=== PATIENT | male | born 1945 | race Caucasian/White ===

== ENCOUNTER 2018-02-15 10:00 | Inpatient (IN) | payer OTHER ==
--- NOTE | 2018-02-15 10:13 | EDPHY ---
H & P Stated Complaint: redness/swelling l leg flew from [place] last week/also noted mild sob Time Seen by Provider: 02/15/18 10:08 HPI/ROS: CHIEF COMPLAINT: Left calf pain, cough and dyspnea HISTORY OF PRESENT ILLNESS: The patient presents to the ED with complaints of a one-week history of left calf pain, swelling, slight tachycardia, mild dyspnea and a slight cough. The patient denies prior history of PE or DVT. He denies cardiac or pulmonary problems. The patient denies pleuritic chest pain. The patient does have a past medical history significant for Lyme disease. The patient denies any fever, abdominal pain, vomiting or diarrhea. He has no so seated numbness or weakness. The patient reports his symptoms are mild in nature. REVIEW OF SYSTEMS: A comprehensive 10 point review of systems is otherwise negative aside from elements mentioned in the history of present illness. Source: Patient - Personal History Current Tetanus/Diphtheria Vaccine: Yes - Medical/Surgical History Hx Asthma: No Hx Chronic Respiratory Disease: No Hx Diabetes: No Hx Cardiac Disease: No Hx Renal Disease: No Hx Cirrhosis: No Hx Alcoholism: No Hx HIV/AIDS: No Hx Splenectomy or Spleen Trauma: No Other PMH: lyme disease - Social History Smoking Status: Never smoked - Physical Exam Exam: General Appearance: Alert, no distress Eyes: Pupils equal and round no pallor or injection ENT, Mouth: Mucous membranes moist Respiratory: There are no retractions, lungs are clear to auscultation Cardiovascular: Tachycardic Gastrointestinal: Abdomen is soft and nontender, no masses, bowel sounds normal Neurological: 5/5 strength all 4 extremities Skin: Warm and dry, no rashes Musculoskeletal: Neck is supple nontender Extremities: Asymmetry and swelling noted in the left calf. 2+ dorsalis pedis and posterior tibial pulses noted bilaterally Constitutional: Initial Vital Signs Temperature (C) 37 C 02/15/18 10:04 Heart Rate 135 H 02/15/18 10:04 Respiratory Rate 20 02/15/18 10:04 Blood Pressure 118/90 H 02/15/18 10:04 O2 Sat (%) 92 02/15/18 10:04 O2 Delivery Mode Room Air O2 (L/minute) 98 Allergies/Adverse Reactions: No Known Allergies Allergy (Verified 02/15/18 10:03) Home Medications: Medication Instructions Recorded Enalapril/Hydrochlorothiazide 1 each PO 02/28/13 [Enalapril-Hctz 10-25 mg Tablet] amLODIPine BESYLATE [Norvasc] 10 mg PO DAILY 02/28/13 Medical Decision Making - Diagnostics EKG Interpretation: EKG: Complete interpretation has been separately recorded in the [facility] archive. Summary impression: Atrial fibrillation, rate 103 Imaging Results: Imaging Impressions Extremity Venous Study 02/15/18 10:34 Impression: 1. DVT from the proximal to mid femoral veins through the calf veins. Findings discussed with Charles Montana M.D. at 11:20 hour, 02/15/2018. Chest/Thorax CTA 02/15/18 11:22 Impression: 1. Moderate volume bilateral pulmonary emboli without associated abnormal bowing of the interventricular septum. 2. Incidental cysts within the liver. Findings discussed with Charles Montana at 12:32 hour, 02/15/2018. ED Course/Re-evaluation: The patient presents to the ED for evaluation of left leg pain, tachycardia and mild dyspnea. The patient was noted to be in atrial fibrillation with a rate of approximately 100. The patient's ultrasound confirms a DVT. Given his tachycardia a CT pulmonary angiogram was obtained which demonstrates bilateral thromboembolic disease. The patient is no acute distress. He is also noted to have new onset atrial fibrillation. Consultation is made with the hospitalist service. The patient was started on IV heparin. The patient will be admitted to the hospital by Dr. Buck Gregory. Differential Diagnosis: Differential diagnosis considered includes pulmonary embolism, DVT, atrial fibrillation, dehydration, metabolic abnormality - Data Points Laboratory Results: Laboratory Results 02/15/18 10:50 02/15/18 02/15/18 02/15/18 10:54 10:50 10:50 WBC RBC Hgb POC Hgb 16.0 gm/dL gm/dL (13.7-17.5) Hct POC Hct 47 % % (40-51) MCV MCH MCHC RDW Plt Count MPV Neut % (Auto) Lymph % (Auto) Valencia % (Auto) Eos % (Auto) Baso % (Auto) Nucleat RBC Rel Count Absolute Neuts (auto) Absolute Lymphs (auto) Absolute Monos (auto) Absolute Eos (auto) Absolute Basos (auto) Absolute Nucleated RBC Immature Gran % Immature Gran # D-Dimer > 20.00 ug/mLFEU H ug/mLFEU (0.00-0.50) POC Sodium 137 mEq/L mEq/L (135-145) POC Potassium 3.9 mEq/L mEq/L (3.3-5.0) POC Chloride 99 mEq/L mEq/L (97-110) POC BUN 19 mg/dL mg/dL (7-23) POC Creatinine 0.9 mg/dL mg/dL (0.7-1.3) POC Glucose 148 mg/dL H mg/dL (70-100) Troponin I < 0.012 ng/mL ng/mL (0.000-0.034) 02/15/18 10:50 WBC 5.21 10^3/uL 10^3/uL (3.80-9.50) RBC 4.87 10^6/uL 10^6/uL (4.40-6.38) Hgb 15.8 g/dL g/dL (13.7-17.5) POC Hgb Hct 44.3 % % (40.0-51.0) POC Hct MCV 91.0 fL fL (81.5-99.8) MCH 32.4 pg pg (27.9-34.1) MCHC 35.7 g/dL g/dL (32.4-36.7) RDW 12.8 % % (11.5-15.2) Plt Count 139 10^3/uL L 10^3/uL (150-400) MPV 9.3 fL fL (8.7-11.7) Neut % (Auto) 35.0 % L % (39.3-74.2) Lymph % (Auto) 48.8 % H % (15.0-45.0) Valencia % (Auto) 14.4 % H % (4.5-13.0) Eos % (Auto) 1.0 % % (0.6-7.6) Baso % (Auto) 0.6 % % (0.3-1.7) Nucleat RBC Rel Count 0.0 % % (0.0-0.2) Absolute Neuts (auto) 1.83 10^3/uL 10^3/uL (1.70-6.50) Absolute Lymphs (auto) 2.54 10^3/uL 10^3/uL (1.00-3.00) Absolute Monos (auto) 0.75 10^3/uL 10^3/uL (0.30-0.80) Absolute Eos (auto) 0.05 10^3/uL 10^3/uL (0.03-0.40) Absolute Basos (auto) 0.03 10^3/uL 10^3/uL (0.02-0.10) Absolute Nucleated RBC 0.00 10^3/uL 10^3/uL (0-0.01) Immature Gran % 0.2 % % (0.0-1.1) Immature Gran # 0.01 10^3/uL 10^3/uL (0.00-0.10) D-Dimer POC Sodium POC Potassium POC Chloride POC BUN POC Creatinine POC Glucose Troponin I Medications Given: Discontinued Medications Heparin Sodium (Porcine) (Heparin Injection) 0 unit IVP EDNOW ONE PRN Reason: Protocol Stop: 02/15/18 12:36 Last Admin: 02/15/18 12:51 Dose: 6,800 units Heparin Sodium (Porcine) (Heparin 50 Units/Ml (Premix)) 500 mls @ 0 mls/hr IV EDNOW ONE; Per Protocol PRN Reason: Protocol Stop: 02/15/18 12:36 Last Admin: 02/15/18 12:49 Dose: 500 mls Point of Care Test Results: 02/15/18 10:54 POC Sodium 137 POC Potassium 3.9 POC Chloride 99 POC BUN 19 POC Creatinine 0.9 POC Glucose 148 H Departure - Departure Disposition: [facility] Inpatient Acute Clinical Impression: Atrial fibrillation, Left leg DVT, Bilateral pulmonary embolism Condition: Good Referrals: NONE *PRIMARY CARE P,. [Primary Care Provider] - As per Instructions
--- NOTE | 2018-02-15 10:46 | CPEKG ---
Heart Rate: 103 RR Interval: 583 QRSD Interval: 76 QT Interval: 316 QTC Interval: 414 QRS [place]: -19 T Wave [place]: -18 EKG Severity - ABNORMAL ECG - EKG Impression: ATRIAL FIBRILLATION, V-RATE 79-121 EKG Impression: VENTRICULAR TRIGEMINY EKG Impression: BORDERLINE LEFT AXIS DEVIATION EKG Impression: BORDERLINE T ABNORMALITIES, INFERIOR LEADS Electronically Signed By: Valerie Simms 15-Feb-2018 22:49:43
[2018-02-15 10:59] LABS: PLATELET COUNT 139 10^3/uL (150-400)
[2018-02-15] MEDS ORDERED: IOPAMIDOL (ISOVUE 370) 100 ML BTL IV ONE (11:55)
[2018-02-15] MEDS ORDERED: HEPARIN/DEXTROSE 500 ML IV ONE (12:35)
[2018-02-15] MEDS ORDERED: HEPARIN 10,000 UNIT/10 ML MDV (1,000 UNIT/ML) IVP ONE ×2 (12:35→13:36)
[2018-02-15] MEDS ORDERED: ACETAMINOPHEN 325 MG TAB PO PRN (13:34)
[2018-02-15] MEDS ORDERED: ONDANSETRON 4 MG/2 ML VIAL IVP PRN (13:34)
[2018-02-15] MEDS ORDERED: ONDANSETRON DISINTEGRATING 4 MG TAB PO PRN (13:34)
[2018-02-15] MEDS ORDERED: HEPARIN 10,000 UNIT/10 ML MDV (1,000 UNIT/ML) IVP PRN (13:36)
[2018-02-15] MEDS ORDERED: NS 1,000 ML IV SCH (13:45)
[2018-02-15] MEDS ORDERED: HEPARIN/DEXTROSE 500 ML IV SCH (13:45)
--- NOTE | 2018-02-15 14:37 | GHP ---
[f rep st] HISTORY AND PHYSICAL DATE OF ADMISSION: 02/15/2018 The patient is a pleasant 72-year-old gentleman with history of prostate cancer that has been treated as well as Lyme disease, who presents with swelling in his left calf as well as increased work of br eathing. He traveled here from [facility] 10 days ago, noticed some swelling in his leg subsequently. A lso further history reveals that he has had some shortness of breath and faster heart rate than usual with his workouts going back a couple of months. He has had no hemoptysis. No fever or chills. He has not been hospitalized recently, but he did have a transatlantic flight last week. No prior history of VTE. He does not take estrogen or testosterone containing medicines. REVIEW OF SYSTEMS: Complete 10-point review of systems conducted negative except as noted in the HPI . PAST MEDICAL HISTORY: Hypertension, prostate cancer, Lyme disease, apparently Lyme is endemic in [facility]. FAMILY HISTORY: Reviewed unremarkable. His daughter is healthy at the bedside. ALLERGIES: No known drug allergies. HOME MEDICATIONS: Enalapril/hydrochlorothiazide as well as amlodipine. SOCIAL HISTORY: He has alcohol with regularity but does not have difficulty if he stops drinking. Don lomas does not smoke cigarettes. PHYSICAL EXAMINATION: VITAL SIGNS: Temperature 37, blood pressure 118/90, pulse 135 now 100, breath ing 20 times a minute, 90% on room air. GENERAL: No acute distress. Sunburned. HEENT: Sclerae anicteric. Oropharynx clear. Mucous membranes moist. NECK: Supple without lymphad enopathy or JVD. LUNGS: Clear to auscultation bilaterally. HEART: S1, S2. ABDOMEN: Soft, nonten lauren, nondistended. EXTREMITIES: Lower extremities without edema. Calves are nontender. His left l ower extremity is edematous. There are some dilated veins and some erythema. SKIN: Without rash. NEUROLOGIC: Exam is nonfocal. LABORATORY DATA: White count 5, hematocrit 44, platelets 139,000. D-dimer is greater than 20. Poin t of care sodium is 137, potassium 3.9, chloride 99, BUN 19, creatinine 0.9, glucose 148. Troponin l ess than 0.012. EKG interpreted by me shows atrial fibrillation at 103, with normal axis intervals. There are some P VCs, but there are no ST or T-wave changes. Ultrasound of the left lower extremity shows DVT from th e proximal mid femoral vein to the calf veins. CTA of the chest reviewed and interpreted by me shows moderate volume pulmonary embolism. I have dis cussed the case Dr. Charles Montana. ASSESSMENT/PLAN: A 72-year-old gentleman with pulmonary embolism and atrial fibrillation. 1. Pulmonary embolism moderate clot burden. I will perform echocardiogram. No indication for filte r at this point in time. Started on IV heparin. Hold off on starting Coumadin as he may be discharg ed on a novel oral anticoagulant there is moderate clot burden. 2. Atrial fibrillation is likely secondary to his pulmonary embolism, will follow. He is being ther apeutically anticoagulated. I will hold off on beta blockade at this time. 3. Hypertension. We will hold his medications given his large volume pulmonary embolism. 4. Deep venous thrombosis, heparin started. DISPOSITION: Inpatient status. /[id number]/MODL
--- NOTE | 2018-02-15 15:23 | PDMN ---
Medical Necessity Medical necessity: C/M review: Patient meets INPT criteria under [facility] M-290 Pulmonsry embolism: Acute moderate volume clot burden bilateral on CTA, pulmonary emboli, left lower extremity DVT from the proximal to mid femoral veins through the calf veins on Doppler US, atrial fibrillation likely secondary to PE, requiring planned echocardiogram, IV NS 125 ml/hr. infusion x 2 bags, ongoing IV Heparin infusion, cardiac monitoring, comorbid hypertension, history of prostate cancer, Lyme disease, patient travelled from [facility] 10 days ago to [place], [place], no prior history of venous thromboembolism. anticipates > 2 [place] LOS for ongoing med nec for eval and TX of above.
[2018-02-16 03:44] LABS: PLATELET COUNT 123 10^3/uL (150-400)
[2018-02-16 03:53] LABS: INR 1.17 (0.83-1.16); PROTIME(PATIENT) 15.1 SEC (12.0-15.0)
--- NOTE | 2018-02-16 13:34 | ECHO ---
[email or web address] [address] [address] Main: [phone] Fax: Transthoracic Echocardiogram Name: DILIA DURON MR#: [id number] Study Date: 02/15/2018 Study Time: 02:54 PM Date of : 1945 Age: 72 year(s) Height: 185.4 cm (73 in.) Weight: 102.97 kg (227 lb.) BSA: 2.27 m2 Gender: Male Examination: Echo Indication: Image Quality: Contrast: Requested by: Buck Gregory BP: 123 mmHg/76 mmHg Heart Rate: Rhythm: Indication: Procedure Staff Life Science Taxonomist: [facility] Reading Physician: Lobito Solorzano MD Requesting Provider: Conclusions: Normal size left ventricle. Mild concentric LV hypertrophy. Normal global systolic LV function. The ejection fraction is visually estimated to be 60 %. Mildly dilated right ventricle. Normal RV function. The left atrium is mildly dilated. The right atrium is moderately dilated. Moderate mitral valve regurgitation is present. Mild to moderate tricuspid valve regurgitation. Right ventricular systolic pressure measures 38mmHg. The pulmonary artery pressure is mildly increased. The IVC is normal sized. No pericardial effusion. Measurements: Chambers Valvular Assessment AV/MV Valvular Assessment TV/PV Normal Normal Normal Name Value Range Name Value Range Name Value Range Ao Vicki (2D): 3.1 cm (1.4 cm-2.6 AV meanP mmHg ( - ) TR Vmax: 2.86 mm/s ( - ) cm) MARQUIS (VTI): 2.7 cm ( - ) TR PGmax: 33 mmHg ( - ) IVSd (2D): 1.3 cm (0.6 cm-1.1 MV E Vmax: 0.76 m/s ( - ) syst. PAP: 38 mmHg ( - ) cm) MV PHT: 0.057 s ( - ) PV Vmax: 0.91 m/s (0.6 m/s-0.9 LVDd (2D): 4.3 cm (4.2 cm-5.9 MVA (PHT): 3.9 s ( - ) m/s) cm) PV PGmax: 3 mmHg ( - ) LVDs (2D): 3.0 cm (2.1 cm-4 cm) LVPWd (2D): 1.3 cm (0.6 cm-1 cm) LVOTd 2.1 cm 2.1 cm mm Patient: DILIA DURON Study Date: 02/15/2018 Page 1 of 3 02:54 PM LVEF (MOD4): 70 % (>=55 %) Visual EF: 60 % RVDd(2D): 3.9 cm (1.9 cm-3.8 cmmm) Continued Measurements: Chambers Valvular Assessment AV/MV Valvular Assessment TV/PV Name Value Name Value Name Value LADs: 4.1 cm MV DecTime: 225 m/s CVP (est.): 5 mmHg LADs Lon.5 cm MV E' Septal: 0.10 m/s LA Area: 25.8 cm2 MV E/E' Septal: 7.80 RA Area: 22.8 cm2 MV E/E' Lateral: 5.20 MR ERO: 0.260 cm2 MR PISA radius: 7 mm MR Reg. Volume: 26 ml Additional Vessels Name Value Ao Ascendin.9 cm Inferior Vena Cava: 1.6 cm Findings: Left Ventricle: Normal size left ventricle. Mild concentric LV hypertrophy. Normal global systolic LV function. The ejection fraction is visually estimated to be 60 %. No regional wall motion abnormality. Unable to assess diastolic dysfunction. Right Ventricle: Mildly dilated right ventricle. Normal RV function. Left Atrium: The left atrium is mildly dilated. Right Atrium: The right atrium is moderately dilated. Mitral Valve: The mitral valve is normal in appearance and function. No mitral stenosis is present. Moderate mitral valve regurgitation is present. Aortic Valve: Aortic sclerosis is present. The aortic valve is tri-leaflet and functions normally. There is no significant aortic valve regurgitation. No aortic valve stenosis is present. Tricuspid Valve: The tricuspid valve is normal in appearance and function. Mild to moderate tricuspid valve regurgitation. Right ventricular systolic pressure measures 38mmHg. The pulmonary artery pressure is mildly increased. Pulmonic Valve: The pulmonic valve is normal in appearance and function. There is no pulmonic regurgitation seen. Aorta: The aorta is normal. Normal size aortic root measuring 3.1 cm. Normal size ascending aorta measuring 2.9 cm. IVC: The IVC is normal sized. Pericardium: No pericardial effusion. No pleural effusion. Exam Comments: Technically difficult exam due to patient body habitus. (No Signature Object) Patient: DILIA DURON Study Date: 02/15/2018 Page 2 of 3 02:54 PM Patient: DILIA DURON Study Date: 02/15/2018 Page 3 of 3 02:54 PM [id number]
--- NOTE | 2018-02-16 14:47 | HOSPPROG ---
Hospitalist Progress Note Assessment/Plan: 72 yo m w PE and new AF PE: moderate clot burden w concomitant dvt stable on IV heparin echo w rvsp 38 and slightly dilated RV not hypotensive, not hypoxic 1. switch to lovenox 2. DOAc on dc AF: new, although has had palpitations in past given reassuring findings on echo, start dilt 30 q6 anticoagulated for pe MR: new finding needsoutpt follow up dispo: inpt Subjective: tele: af in low 100's (interp by me) Objective: Vital Signs Temp Pulse Resp BP Pulse Ox 37.0 C 115 H 22 H 130/72 H 92 02/16/18 12:00 02/16/18 12:00 02/16/18 12:00 02/16/18 12:00 02/16/18 12:00 Laboratory Results 02/16/18 03:30 02/16/18 03:30 02/15/18 02/16/18 02/17/18 05:59 05:59 05:59 Intake Total 2830 Output Total 850 Balance 1979 PT 15.1 SEC (12.0-15.0) H 02/16/18 03:30 INR 1.17 (0.83-1.16) H 02/16/18 03:30 - Physical Exam Constitutional: no apparent distress, appears nourished Eyes: PERRL, anicteric sclera Ears, Nose, Mouth, Throat: moist mucous membranes, hearing normal Cardiovascular: irregularly irregular, No systolic murmur Respiratory: no respiratory distress, no rales or rhonchi Gastrointestinal: normoactive bowel sounds, soft, non-tender abdomen Genitourinary: no bladder fullness, No lara in urethra Skin: warm, normal color Musculoskeletal: full muscle strength, no muscle tenderness Neurologic: AAOx3 ICD10 Worksheet Patient Problems: Problems Problem Status Onset Atrial fibrillation Acute Bilateral pulmonary embolism Acute Left leg DVT Acute
[2018-02-16] MEDS: DILTIAZEM 30 MG TAB PO SCH ×3 (14:57→23:05)
[2018-02-16] MEDS: ENOXAPARIN 100 MG/ML SYR SC SCH ×2 (14:57→23:05)
--- NOTE | 2018-02-16 15:36 | ASMTCMCOM ---
CM Note CM Note Notes: 02/16/2018 Case Management Note Met w/pt to discuss d/c needs. There are no identified needs. There are no PT or OT evals ordered at this time. 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 Pt lives in [facility] with his Bette. They are visiting his daughter Devika Ambriz [phone] until next Friday (02/24) when they plan to return to [facility]. Pt meeting with financial counseling re: insurance coverage. Per pt he has contacted his travel insurance [employer] for directions. Case Management d/c poc: independent with follow up as directed. Case Management available if needs change. Date Signed: 02/16/2018 03:35 PM Electronically Signed By:Antoinette Gomez RN
[2018-02-16] MEDS ORDERED: MELATONIN 3 MG TAB PO PRN (20:15)
[2018-02-17] MEDS: DILTIAZEM 30 MG TAB PO SCH (05:12)
[2018-02-17 08:43] VITALS: BP 119/73
[2018-02-17] MEDS: ENOXAPARIN 100 MG/ML SYR SC SCH (08:46)
--- NOTE | 2018-02-17 09:25 | HOSPPROG ---
Hospitalist Progress Note Assessment/Plan: 72 yo m w PE and new AF PE: moderate clot burden w concomitant dvt stable on IV heparin echo w rvsp 38 and slightly dilated RV not hypotensive, not hypoxic 1. switch to lovenox 2. DOAc on dc AF: change to long acting dilt MR: new finding needs outpt follow up dispo: inpt Subjective: tele: AF in 90's, low 100's. feels great Objective: Vital Signs Temp Pulse Resp BP Pulse Ox 36.8 C 85 16 119/73 92 02/17/18 08:00 02/17/18 08:00 02/17/18 08:00 02/17/18 08:00 02/17/18 08:00 Laboratory Results 02/16/18 03:30 02/16/18 03:30 02/16/18 02/17/18 02/18/18 05:59 05:59 05:59 Intake Total 2830 1789 Output Total 850 Balance 1980 1789 PT 15.1 SEC (12.0-15.0) H 02/16/18 03:30 INR 1.17 (0.83-1.16) H 02/16/18 03:30 - Physical Exam Constitutional: no apparent distress, appears nourished Eyes: PERRL, anicteric sclera Ears, Nose, Mouth, Throat: moist mucous membranes, hearing normal Cardiovascular: irregularly irregular, tachycardia Respiratory: no respiratory distress, no rales or rhonchi Gastrointestinal: normoactive bowel sounds, soft, non-tender abdomen Genitourinary: no bladder fullness, No lara in urethra Skin: warm, normal color Musculoskeletal: full muscle strength Neurologic: AAOx3 ICD10 Worksheet Patient Problems: Problems Problem Status Onset Atrial fibrillation Acute Bilateral pulmonary embolism Acute Left leg DVT Acute
[2018-02-17] MEDS ORDERED: DILTIAZEM CD 120 MG CAP PO SCH (09:30)
--- NOTE | 2018-02-17 12:03 | ASDISCHSUM ---
Discharge Information Plan Status:Home with No Needs Medically Cleared to Leave:02/17/2018 Discharge Date:02/17/2018 CM D/C Disposition:Home, Routine, Self-Care ADT D/C Disposition: Projected Discharge Date:02/17/2018 Transportation at D/C:Family Discharge Delay Reason: Follow-Up Date:02/17/2018 Discharge Slot: Final Diagnosis: Placement Information Patient Contact Information Contact Name:THAD Relationship:Daughter Address:[address] [place] [address] TANISHA SALGADO Work Phone: City:[place] Alternate Phone: State/Zip Code:[place] [address] Email: Financial Information Financial Class:O and PPO Plans Primary Plan Desc:ASHLEY PPO POS HMO SIG ADM Primary Plan Number:[id number] Secondary Plan Desc: Secondary Plan Number: Assessment Information [facility] CM Progress Note CM Note CM Note Notes: 02/16/2018 Case Management Note Met w/pt to discuss d/c needs. There are no identified needs. There are no PT or OT evals ordered at this time. Pt is a retired net software developer. Pt lives in [facility] with his Bette. They are visiting his daughter Devika Ambriz [phone] until next Friday (02/24) when they plan to return to [facility]. Pt meeting with financial counseling re: insurance coverage. Per pt he has contacted his travel insurance [employer] for directions. Case Management d/c poc: independent with follow up as directed. Case Management available if needs change. Date Signed: 02/16/2018 03:35 PM Electronically Signed By:Antoinette Gomez RN Case Management Discharge Plan Note Case Management Discharge Discharge Order Complete? Answers: Yes Patient to Obtain Answers: Independently Medications Transportation Arranged Answers: Family/Friends Family Notified Answers: Yes Notes: in room Discharge Comments Notes: Pt to d/c independent with follow up as directed. Daughter Devika lives here and pt is staying with her. Date Signed: 02/17/2018 12:03 PM Electronically Signed By:Antoinette Gomez RN Intervention Information
--- NOTE | 2018-02-17 12:04 | ASMTLACE ---
LACE Length of stay for Answers: 1 day current admission Acuity / Level of Answers: Yes Care: Did the patient have an inpatient admission? Comorbidities - select Answers: Any tumor (including all that apply lymphoma or leukemia) Other Notes: lyme disease, HTN # of Emergency department Answers: 1-2 visits in the last 6 months Score: 8 Date Signed: 02/17/2018 12:03 PM Electronically Signed By:Antoinette Gomez RN
--- NOTE | 2018-02-17 13:01 | GDS ---
[f rep st] DISCHARGE SUMMARY DISCHARGE DIAGNOSES: 1. Hypertension. 2. Pulmonary embolism with moderate volume and mild right heart strain. 3. Deep vein thrombosis. 4. Atrial fibrillation, this is a new diagnosis. 5. Mitral regurgitation. HISTORY: Please see admission history and physical by Dr. Buck Gregory. The patient presented wit h chest pain and breathlessness. He was found to have a left lower extremity DVT and moderate clot v olume. He had echocardiogram showing RV SP of 38 mmHg and a mildly dilated but fully contractile rig ht ventricle. He also was noted to have concomitant mitral regurgitation but he does not have an oxy gen requirement. While here, he received 48 hours of low-molecular weight heparin with transition to Eliquis as an outpatient. Once we knew that his right ventricle was working properly, he received diltiazem for rate control of atrial fibrillation bring his rate from the 130s down to the 90s to 110. He suspects he has had atr ial fibrillation for a number of months if not longer, given a history of palpitations as an outpatie nt. His antihypertensives were discontinued. He was hemodynamically stable the whole time while her e. He is discharged home. The patient demonstrated understanding of the outpatient course. He has followup in [facility]. /[id number]/MODL
== END 2018-02-17 12:23 | disposition home or self-care (01) | DRG 299 ==
LOC: F2W 13:48
PROVIDERS: ADMIT Internal Medicine; ATTEND Internal Medicine
DX: I82.4Z2 Acute embolism and thrombosis of unspecified deep veins of left distal lower extremity (principal); I26.99 Other pulmonary embolism without acute cor pulmonale; I48.91 Unspecified atrial fibrillation; I10 Essential (primary) hypertension; Z85.46 Personal history of malignant neoplasm of prostate; I34.0 Nonrheumatic mitral (valve) insufficiency
CPT/HCPCS: 82947-QW; 85520-90; 96365; J1644; J1650; Q9967